=== PATIENT | female | born 2000 | race Two or more races ===

== ENCOUNTER 2020-04-12 22:29 | Emergency (ER) | payer SELFPAY ==
[~2020-04-12] VITALS: Ht 162.6 cm; Wt 68.0 kg
--- NOTE | 2020-04-12 22:40 | NUR ---
[id number] FROM [facility] C/O ALCOHOL INTOXICATION. PT VOMITTING ON ARRIVAL. OPENS EYES TO PAINFUL STIMULI. VITAL SIGNS STABLE. RESPIRATIONS EVEN AND UNLABORED. NO ACUTE DISTRESS NOTED AT THIS TIME. PLACED ON MONITOR, WILL CONTINUE TO MONITOR
[2020-04-12] MEDS ORDERED: IV NS 0.9% 1,000 ML BAG IV ONE (23:00)
[2020-04-12 23:07] LABS: BASOPHILS # (AUTO) 0.1 /CMM (0.0-0.2); BASOPHILS % (AUTO) 0.6 % (0.0-2.0); EOSINOPHILS % (AUTO) 0.5 % (0.0-6.0); HEMATOCRIT 36 % (33-45); HEMOGLOBIN 11.9 g/dL (11.5-14.8); LYMPHOCYTES # (AUTO) 3.2 /CMM (0.8-4.8); LYMPHOCYTES % (AUTO) 28.9 % (20.0-44.0); MEAN CORPUSCULAR HGB CONC 33 g/dl (31.0-36.0); MEAN CORPUSCULAR VOLUME 97 fL (82-100); MONOCYTES # (AUTO) 0.6 /CMM (0.1-1.30); MONOCYTES % (AUTO) 5.5 % (2.0-12.0); NEUTROPHILS # (AUTO) 7.2 /CMM (1.8-8.9); NEUTROPHILS % (AUTO) 64.5 % (43.0-81.0); PLATELET COUNT (AUTO) 238 /CMM (150-450); RED BLOOD CELL COUNT(AUTO) 3.72 MIL/uL (4.0-5.2); WHITE BLOOD COUNT (AUTO) 11.1 K/uL (4.3-11.0)
[2020-04-12 23:16] LABS: BILIRUBIN,URINE NEGATIVE (NEGATIVE); COLOR,URINE YELLOW (YELLOW); LEUKOCYTE ESTERASE ,URINE NEGATIVE (NEGATIVE); NITRITE, URINE NEGATIVE (NEGATIVE); PROTEIN,URINE NEGATIVE (NEGATIVE); UGLUCOSE NEGATIVE (NEGATIVE); UROBILINOGEN,URINE 0.2 EU/dL (0.2)
[2020-04-12 23:19] LABS: CALCIUM, SERUM 8.7 mg/dL (8.5-10.1); CARBON DIOXIDE 25 mmol/L (21-32); CHLORIDE 102 mmol/L (98-107); CREATININE 0.8 mg/dL (0.6-1.3); GLUCOSE 127 mg/dL (74-106); POTASSIUM 3.1 mmol/L (3.5-5.1); SODIUM SERUM 140 mmol/L (136-145); UREA NITROGEN, BLOOD 7 mg/dL (7-18)
[2020-04-12 23:25] LABS: ALANINE AMINOTRANSFERASE 23 U/L (12-78); ALBUMIN 3.7 g/dL (3.4-5.0); ALCOHOL, BLOOD 241 mg/dL (0-0); ALKALINE PHOSPHATASE 90 U/L (46-116); ASPARTATE AMINOTRANSFERASE 28 U/L (15-37); BILIRUBIN,DIRECT 0.2 mg/dL (0.0-0.2); BILIRUBIN,TOTAL 0.7 mg/dL (0.2-1.0); TOTAL PROTEIN, SERUM 7.1 g/dL (6.4-8.2)
[2020-04-12 23:42] LABS: ACETAMINOPHEN < 2 ug/ml (10-30)
--- NOTE | 2020-04-13 05:13 | NUR ---
PT A, OX4 , AMBULATORY IN THE [address] WITH STEADY GAITS, AND STATED WILLING TO LEAVE. PO CHALLENGE DONE, TOLERATED WELL. NO N/V, NO S/S OF ASPIRATION. MD MADE AWARE. PT IS MEDICALLY STABLE FOR D/C PER MD. IV removed. Catheter intact and site benign. Pressure and 4x4 applied to site. No bleeding noted. Patient discharged to home in stable condition. Written and verbal after care instructions given. Patient verbalizes understanding of instruction.
[2020-04-13 05:18] VITALS: BP 111/68
== END 2020-04-13 05:19 | disposition home or self-care (01) ==
LOC: ER 22:30 → EDBD 22:30 → ER 04-13 05:19
DX: R41.82 Altered mental status, unspecified (principal); F10.10 Alcohol abuse, uncomplicated; Y90.8 Blood alcohol level of 240 mg/100 ml or more
CPT/HCPCS: 36415; 80048; 80076; 80299; 80307; 80320; 81003; 84703; 85025; 96360; 99285; J7030; G0480